=== PATIENT | male | born 1990 | race Two or more races ===

== ENCOUNTER 2016-12-31 19:57 | Emergency (ER) | payer MEDICAID ==
[~2016-12-31] VITALS: Ht 188 cm; Wt 133.4 kg
[~2016-12-31 19:57] MED LIST: AMIO200T33 PO; BENA5TAB5 PO; FAMO-12 PO; FURO40TA4 PO; GABA-497 PO; LEVO100T8 PO; MAGN400T23 PO; POTA20IN2 PO; RIVSET PO; SPIR25TA89 PO
[2016-12-31] MEDS ORDERED: ACETAMINOPHEN 325 MG TAB PO ONE (20:15)
[2016-12-31 20:36] LABS: Urine Bilirubin Negative (Negative); Urine Blood 2+ /uL (Negative); Urine Color PINK (Yellow); Urine Glucose Normal (Normal); Urine Ketone Negative (Negative); Urine Mucus FEW (None Seen); Urine Nitrite Negative (Negative); Urine RBC 207 /hpf (0 - 3); Urine Squamous Epithelial Cell FEW /hpf (<5); Urine pH 5.5 (5.0-8.0)
[2016-12-31 21:07] LABS: Basophils # (auto) 0.1 uL; CONDITION Y; Eosinophils # (auto) 0 uL; Eosinophils % (auto) 0.2 % (0.0-7.0); Hematocrit 36.9 % (41.0-53.0); Hemoglobin 12.5 g/dL (13.5-17.5); Lymphocytes # (auto) 1.2 uL; Mean Corpuscular Hemoglobin 28.7 pg (28.0-32.0); Mean Corpuscular Hgb Conc. 33.8 g/dL (32.0-36.0); Mean Corpuscular Volume 84.8 fL (80.0-100.0); Mean Platelet Volume 8.4 fL (7.4-10.4); Neutrophils # (auto) 9.9 uL; Neutrophils % (auto) 80.8 % (37.0-80.0); Platelet Count (auto) 347 10^3/uL (140-450); Red Cell Distribution Width 14.6 % (11.6-16.0); White Blood Cell 12.3 10^3/uL (4.4-10.8)
[2016-12-31 21:15] LABS: INR 1.14 (0.9-1.15); Partial Thromboplastin Time 33.7 sec (22.64-33.71); Prothrombin Time 12.4 sec (9.37-12.3)
[2016-12-31 21:24] LABS: Albumin 2.6 g/dL (3.4-5.0); BUN/Creatinine Ratio 11.8; Bilirubin, Total 0.6 mg/dL (0.2-1.0); Calcium 8.7 mg/dL (8.5-10.1); Potassium 3.9 mmol/L (3.5-5.1)
[2017-01-01] MEDS ORDERED: VANCOMYCIN 1GM/250ML D5W 250 ML IV ONE (01:00)
[2017-01-01] MEDS ORDERED: MORPHINE SULFATE 4 MG/ML SYRG IV ONE (01:00)
[2017-01-01] MEDS ORDERED: ONDANSETRON HCL 4 MG/2 ML VIAL IV ONE (01:00)
[2017-01-01] MEDS ORDERED: cefTRIAXone 1GM/50ML D5W 50 ML IV ONE (01:15)
[2017-01-01] MEDS ORDERED: MORPHINE SULF INJ 2 MG/ML SYRINGE 1ML IV ONE (01:15)
[2017-01-01] MEDS ORDERED: LIDOCAINE 1% HCL (LOCAL ANESTH.) INJ 20ML MDV ONE (03:02)
[2017-01-01] MEDS ORDERED: LIDOCAINE 1% HCL (LOCAL ANESTH.) INJ 20ML MDV IJ ONE (04:15)
[2017-01-01] MEDS ORDERED: LIDOCAINE W/ EPINEPHRINE 1% 20ML VIAL SC ONE (04:45)
[2017-01-01 05:00] VITALS: BP 115/59
[2017-01-01 09:08] LABS: Body Fluid Polymorphonuclear 90 %
== END 2017-01-01 06:03 | disposition home or self-care (01) ==
LOC: EDBD 19:57 → ER 19:59
DX: M25.461 Effusion, right knee (principal); N39.0 Urinary tract infection, site not specified; I10 Essential (primary) hypertension; I50.9 Heart failure, unspecified; E11.9 Type 2 diabetes mellitus without complications; Z96.89 Presence of other specified functional implants; Z79.01 Long term (current) use of anticoagulants; Z88.0 Allergy status to penicillin
CPT/HCPCS: 20610; 36415; 71010; 73700; 80053; 81001; 83605; 83986; 84550; 85025; 85610; 85730; 87040; 87205; 89051; 93005; 96365; 96375; 99285; J2001; J2270; J2405; J3370

== ENCOUNTER 2017-03-22 13:10 | Emergency (ER) | payer MEDICAID ==
[~2017-03-22] VITALS: Ht 185.4 cm; Wt 138.3 kg
[2017-03-22 14:06] VITALS: BP 127/88
== END 2017-03-22 14:40 | disposition home or self-care (01) ==
LOC: ER 13:10
DX: J20.9 Acute bronchitis, unspecified (principal); I11.0 Hypertensive heart disease with heart failure; I50.9 Heart failure, unspecified; E11.9 Type 2 diabetes mellitus without complications; Z95.0 Presence of cardiac pacemaker

== ENCOUNTER 2017-07-18 00:25 | Inpatient (IN) | payer MEDICAID ==
[~2017-07-18] VITALS: Ht 185.4 cm; Wt 136.0 kg
[~2017-07-18 00:25] MED LIST changes: -GABA-497 PO; +GABA300C10 PO
[2017-07-18 01:14] LABS: Basophils # (auto) 0.1 uL; Eosinophils # (auto) 0.1 uL; Hemoglobin 14.1 g/dL (13.5-17.5); Nucleated Red Blood Cells % 0.1 %
[2017-07-18 01:16] LABS: Eosinophils % (auto) 1.4 % (0.0-7.0); Hematocrit 41.6 % (41.0-53.0); Lymphocytes # (auto) 2.1 uL; Lymphocytes % (auto) 22.1 % (10.0-50.0); Mean Corpuscular Hemoglobin 26.2 pg (28.0-32.0); Mean Corpuscular Hgb Conc. 33.9 g/dL (32.0-36.0); Mean Corpuscular Volume 77.4 fL (80.0-100.0); Monocytes # (auto) 0.8 uL; Monocytes % (auto) 8.7 % (0.0-12.0); Neutrophils # (auto) 6.4 uL; Neutrophils % (auto) 66.8 % (37.0-80.0); Platelet Count (auto) 259 10^3/uL (140-450); Red Blood Cells 5.38 10^6/uL (4.5-5.90); White Blood Cell 9.6 10^3/uL (4.4-10.8)
[2017-07-18 01:17] LABS: Red Cell Distribution Width 24.1 % (11.8-14.3)
[2017-07-18 01:37] LABS: Anion Gap 11 (5-15); Calcium 8.8 mg/dL (8.5-10.1); Carbon Dioxide 26 mmol/L (21-32); Chloride 90 mmol/L (98-107); Glucose 110 mg/dL (74-106); Sodium 127 mmol/L (136-145)
[2017-07-18 01:41] LABS: Alanine Aminotransferase 46 U/L (16-61); Alkaline Phosphatase 180 U/L (45-117); Aspartate Aminotransferase 41 U/L (15-37); BUN/Creatinine Ratio 56.5; Bilirubin, Total 0.4 mg/dL (0.2-1.0); Blood Urea Nitrogen 78 mg/dL (7-18); GFR African American 79 mL/min; GFR Non-African American 66 mL/min; Total Protein 9.5 g/dL (6.4-8.2)
[2017-07-18 01:44] LABS: Potassium 2.8 mmol/L (3.5-5.1)
[2017-07-18] MEDS ORDERED: POTASSIUM CHL 20 Meq TABLET PO ONE ×3 (01:45→10:30)
[2017-07-18 02:40] LABS: Urine WBC None Seen /hpf (0 - 3)
[2017-07-18 02:51] LABS: Urine Bacteria NONE SEEN /hpf (None Seen); Urine Blood 1+ /uL (Negative); Urine Specific Gravity 1.007 (1.001-1.035)
[2017-07-18 03:01] LABS: Alcohol, Urine < 3.0 mg/dL (0-5); Amphetamine Screen, Urine NEGATIVE (NEGATIVE); Barbiturate Scree,Urine NEGATIVE (NEGATIVE); Benzodiazephine Screen, Urine NEGATIVE (NEGATIVE); Cannabinoid Screen, Urine NEGATIVE (NEGATIVE); Cocaine Screen, Urine NEGATIVE (NEGATIVE); Opiate Scree,Urine NEGATIVE (NEGATIVE); Phencyclidine Screen, Urine NEGATIVE (NEGATIVE)
[2017-07-18] MEDS ORDERED: NITROGLYCERIN 0.4 MG SL TAB SL PRN (06:30)
[2017-07-18] MEDS ORDERED: MORPHINE SULFATE 4 MG/ML SYR/VIAL IV PRN (06:30)
[2017-07-18] MEDS ORDERED: ACETAMINOPHEN 500 MG TAB PO PRN (06:30)
[2017-07-18] MEDS ORDERED: HYDROcodone-ACET 5/325MG TAB PO PRN (06:30)
[2017-07-18] MEDS ORDERED: ONDANSETRON HCL 4 MG/2 ML VIAL IV PRN (06:30)
[2017-07-18] MEDS: LEVOTHYROXINE SODIUM 100 MCG TAB PO SCH (06:39)
[2017-07-18] MEDS: GABAPENTIN 300 MG CAP PO SCH ×3 (06:39→21:08)
[2017-07-18] MEDS: BUMETANIDE 1 MG TAB PO SCH ×2 (08:00→17:26)
[2017-07-18 09:00] VITALS: BP 133/52
[2017-07-18 09:43] VITALS: BP 133/52
[2017-07-18] MEDS ORDERED: XARELTO 20 MG PO SCH (10:00)
[2017-07-18 10:05] LABS: BUN/Creatinine Ratio 55.6; Potassium 3.3 mmol/L (3.5-5.1)
[2017-07-18] MEDS: SPIRONOLACTONE 25 MG TAB PO SCH (11:24)
[2017-07-18] MEDS: MAGNESIUM OXIDE 400 MG TAB PO SCH (11:25)
[2017-07-18 13:00] VITALS: BP 124/63
[2017-07-18 17:00] VITALS: BP 107/56
[2017-07-18] MEDS ORDERED: RIVAROXABAN 20 MG TAB PO SCH (18:00)
[2017-07-18 21:44] VITALS: BP 112/72
[2017-07-19 05:00] VITALS: BP 107/70
[2017-07-19] MEDS: BUMETANIDE 1 MG TAB PO SCH (05:55)
[2017-07-19] MEDS: GABAPENTIN 300 MG CAP PO SCH ×2 (06:04→16:47)
[2017-07-19] MEDS: LEVOTHYROXINE SODIUM 100 MCG TAB PO SCH (06:05)
[2017-07-19 07:38] LABS: Basophils # (auto) 0 uL; Eosinophils # (auto) 0.1 uL; Red Blood Cells 5.07 10^6/uL (4.5-5.90)
[2017-07-19 07:40] LABS: Basophils % (auto) 0.7 % (0.0-2.0); Eosinophils % (auto) 1.3 % (0.0-7.0); Hematocrit 39.1 % (41.0-53.0); Hemoglobin 13.4 g/dL (13.5-17.5); Lymphocytes # (auto) 1.5 uL; Lymphocytes % (auto) 20.9 % (10.0-50.0); Mean Corpuscular Hemoglobin 26.5 pg (28.0-32.0); Mean Corpuscular Hgb Conc. 34.3 g/dL (32.0-36.0); Mean Corpuscular Volume 77.2 fL (80.0-100.0); Monocytes # (auto) 0.7 uL; Monocytes % (auto) 9.9 % (0.0-12.0); Neutrophils # (auto) 4.9 uL; Neutrophils % (auto) 67.2 % (37.0-80.0); Nucleated Red Blood Cells % 0.1 %; Platelet Count (auto) 238 10^3/uL (140-450); White Blood Cell 7.3 10^3/uL (4.4-10.8)
[2017-07-19 07:58] LABS: Red Cell Distribution Width 24.2 % (11.8-14.3)
[2017-07-19 08:04] LABS: BUN/Creatinine Ratio 53.7; Calcium 9.2 mg/dL (8.5-10.1); Potassium 3.4 mmol/L (3.5-5.1)
[2017-07-19 09:00] VITALS: BP 105/67
[2017-07-19] MEDS: SPIRONOLACTONE 25 MG TAB PO SCH (10:11)
[2017-07-19] MEDS: MAGNESIUM OXIDE 400 MG TAB PO SCH (10:11)
[2017-07-19 13:00] VITALS: BP 103/66
[2017-07-19] MEDS ORDERED: POTASSIUM CHL 20 Meq TABLET PO ONE (14:15)
[2017-07-19 15:42] VITALS: BP 107/70
== END 2017-07-19 15:45 | disposition home or self-care (01) | DRG 425 ==
LOC: EDBD 00:25 → ER 00:30 → TELE 00:31 → TELE-CENTR 07:37
PROVIDERS: ADMIT Nurse Practitioner Family; ATTEND Internal Medicine Pulmonary Disease
DX: E87.6 Hypokalemia (principal); I50.33 Acute on chronic diastolic (congestive) heart failure; I42.9 Cardiomyopathy, unspecified; E66.01 Morbid (severe) obesity due to excess calories; E87.1 Hypo-osmolality and hyponatremia; Z79.01 Long term (current) use of anticoagulants; E11.9 Type 2 diabetes mellitus without complications; E03.9 Hypothyroidism, unspecified; M10.9 Gout, unspecified; I11.0 Hypertensive heart disease with heart failure; R00.2 Palpitations; N28.9 Disorder of kidney and ureter, unspecified; Z95.810 Presence of automatic (implantable) cardiac defibrillator; Z88.0 Allergy status to penicillin; Z86.718 Personal history of other venous thrombosis and embolism; Z82.49 Family history of ischemic heart disease and other diseases of the circulatory system; Z83.3 Family history of diabetes mellitus; Z68.39 Body mass index [BMI] 39.0-39.9, adult
CPT/HCPCS: 36415; 71045; 80048; 80053; 80307; 81001; 83880; 84132; 84443; 84484; 85025; 93005

== ENCOUNTER 2018-01-04 23:21 | Emergency (ER) | payer MEDICAID ==
[~2018-01-04] VITALS: Ht 188 cm; Wt 131.5 kg
[~2018-01-04 23:21] MED LIST changes: +SPIR25TA8 PO; -SPIR25TA89 PO
[2018-01-04 23:33] VITALS: BP 129/70
== END 2018-01-05 04:08 | disposition home or self-care (01) ==
LOC: EDBD 23:21 → ER 23:27
DX: M10.041 Idiopathic gout, right hand (principal); E11.9 Type 2 diabetes mellitus without complications; I11.0 Hypertensive heart disease with heart failure; I50.9 Heart failure, unspecified; E07.9 Disorder of thyroid, unspecified; Z95.0 Presence of cardiac pacemaker; Z88.0 Allergy status to penicillin; Z79.899 Other long term (current) drug therapy
CPT/HCPCS: 36415; 84550

== ENCOUNTER 2018-06-13 16:57 | Emergency (ER) | payer MEDICAID ==
[~2018-06-13] VITALS: Ht 182.9 cm; Wt 143.8 kg
[2018-06-13 17:04] VITALS: BP 126/76
[2018-06-13] MEDS ORDERED: ONDANSETRON HCL 4 MG/2 ML VIAL IV ONE (17:30)
[2018-06-13] MEDS ORDERED: HYDROmorphone HCL 2 MG/ML VL IV ONE (17:30)
[2018-06-13 18:37] LABS: Albumin 2.7 g/dL (3.4-5.0); Anion Gap 16 (5-15); Blood Urea Nitrogen 25 mg/dL (7-18); Calcium 8.7 mg/dL (8.5-10.1); Carbon Dioxide 22 mmol/L (21-32); Chloride 94 mmol/L (98-107); Glucose 106 mg/dL (74-106); Potassium 3.4 mmol/L (3.5-5.1); Sodium 132 mmol/L (136-145)
[2018-06-13 18:40] LABS: Alanine Aminotransferase 30 U/L (16-61); Aspartate Aminotransferase 30 U/L (15-37); BUN/Creatinine Ratio 24.3; GFR African American 111 mL/min; GFR Non-African American 91 mL/min
[2018-06-13 19:05] LABS: Basophils # (auto) 0.1 uL; Basophils % (auto) 0.6 % (0.0-2.0); Eosinophils # (auto) 0 uL; Eosinophils % (auto) 0.2 % (0.0-7.0); Hematocrit 34.2 % (41.0-53.0); Hemoglobin 11.4 g/dL (13.5-17.5); Lymphocytes # (auto) 1.2 uL; Lymphocytes % (auto) 10.3 % (10.0-50.0); Mean Corpuscular Hgb Conc. 33.3 g/dL (32.0-36.0); Mean Corpuscular Volume 81.2 fL (80.0-100.0); Monocytes # (auto) 0.8 uL; Monocytes % (auto) 6.7 % (0.0-12.0); Neutrophils # (auto) 9.9 uL; Neutrophils % (auto) 82.2 % (37.0-80.0); Nucleated Red Blood Cells % 0.1 %; Platelet Count (auto) 338 10^3/uL (140-450); Red Blood Cells 4.21 10^6/uL (4.5-5.90); Red Cell Distribution Width 15.7 % (11.8-14.3); White Blood Cell 12.1 10^3/uL (4.4-10.8)
[2018-06-13 19:23] LABS: Alkaline Phosphatase 106 U/L (45-117); Bilirubin, Total 0.9 mg/dL (0.2-1.0); Total Protein 10.2 g/dL (6.4-8.2)
[2018-06-13 20:23] LABS: Uric Acid 9.8 mg/dL (3.5-7.2)
[2018-06-13] MEDS ORDERED: COLCHICINE 0.6 MG CAP PO ONE (20:45)
[2018-06-13] MEDS ORDERED: methylPREDNISolone SOD SUCC 125 MG/2 ML VL IV ONE (20:45)
== END 2018-06-13 20:59 | disposition home or self-care (01) ==
LOC: ER 16:57 → EDBD 16:57 → ER 20:59
DX: M10.9 Gout, unspecified (principal); I11.0 Hypertensive heart disease with heart failure; I50.9 Heart failure, unspecified; Z88.0 Allergy status to penicillin; Z86.39 Personal history of other endocrine, nutritional and metabolic disease; Z95.0 Presence of cardiac pacemaker
CPT/HCPCS: 36415; 80053; 84550; 85025; 94761; 96374; 96375; 99283; J1170; J2405; J2930